=== PATIENT | male | born 1995 | race African-American/Black ===

== ENCOUNTER 2019-01-14 02:04 | Emergency (ER) | payer OTHER ==
[~2019-01-14] VITALS: Ht 170.2 cm; Wt 77.0 kg
[2019-01-14] MEDS ORDERED: OMEPRAZOLE 20MG CAPSULE EXTENDED RELEASE PO ONE (03:30)
[2019-01-14 05:00] VITALS: BP 144/79
== END 2019-01-14 05:00 | disposition home or self-care (01) ==
LOC: ER 03:55
DX: R10.13 Epigastric pain (principal)
CPT/HCPCS: 71045; 93005; 99283